=== PATIENT | male | born 1985 | race Caucasian/White ===

== ENCOUNTER 2019-11-08 11:34 | Observation (INO) | payer OTHER ==
[~2019-11-08] VITALS: Ht 185.4 cm; Wt 238.1 kg
[2019-11-08 11:42] VITALS: BP 187/101
[2019-11-08] MEDS ORDERED: CARVEDILOL25 MG PO ×2 (11:49→13:59)
[2019-11-08] MEDS ORDERED: TORSEMIDE20 MG PO ×2 (11:49→13:59)
[2019-11-08] MEDS ORDERED: HYDROCHLOROTHIA25 M2 PO (11:50)
[2019-11-08] MEDS ORDERED: SPIRONOLACTONE25 MG PO ×2 (11:50→13:59)
[2019-11-08] MEDS ORDERED: KLOR-CON 1010 MEQ PO ×2 (11:51→13:59)
[2019-11-08] MEDS ORDERED: SYMBICORT160 MCG/4. INH (11:52)
[2019-11-08] MEDS ORDERED: PROAIR HFA8.5 GM INH (11:52)
[2019-11-08 12:15] LABS: ABSOLUTE EOSINOPHILS 0.1 thou/uL (0.0-0.7); ABSOLUTE LYMPHOCYTES 1.2 thou/uL (0.8-5.3); ABSOLUTE MONOCYTES 0.3 thou/uL (0.0-1.2); BASOPHILS 0.5 %; EOSINOPHILS 1.4 %; HEMATOCRIT 40.9 % (42.0-52.0); HEMOGLOBIN 13.8 gm/dL (14.0-18.0); MCH 26.7 pg (26.0-34.0); MCHC 33.8 g/dL (28.0-37.0); MCV 78.8 fL (80.0-100.0); MONOCYTES 3.3 %; MPV 8.7 fl. (7.2-11.1); NUCLEATED RBCS 0 /100WBC; PLATELET COUNT* 198 thou/uL (150-400); POLYS 80.8 %; RBC 5.19 mil/uL (4.50-6.00); RDW-CV 18.5 % (10.5-14.5); WBC 8.6 thou/uL (4.0-11.0)
[2019-11-08 12:26] LABS: CALCIUM 8.7 mg/dL (8.5-10.1); POTASSIUM 3.9 mmol/L (3.5-5.1)
[2019-11-08 12:27] LABS: APTT 23.1 Seconds (25.0-31.3); PROTIME 10.5 Seconds (9.20-11.50)
[2019-11-08 12:40] LABS: ALBUMIN 3.4 g/dL (3.4-5.0); TOTAL BILIRUBIN 0.5 mg/dL (<0.1-1.0); TOTAL PROTEIN 7.7 g/dL (6.4-8.2)
[2019-11-08 13:53] VITALS: BP 172/102
[2019-11-08] MEDS ORDERED: BACTRIM DS TAB1 EACH PO (13:59)
[2019-11-08 14:11] VITALS: BP 172/102
--- NOTE | 2019-11-08 15:00 | NUR ---
DC ORDERS RECEIVED. DC INSTRUCTIONS, CARE NOTES, SCRIPTS AND F/U APPTS GIVEN TO PT. PT COMMUNICATES UNDERSTANDING OF DC TEACHING. IV REMOVED. PT DC'D TO OWN PERSONAL VEHICLE W/ PAPERWORK AND ALL BELONGINGS AT APPROX 1455.
[2019-11-09 05:37] LABS: GLYCOHEMOGLOBIN (HGB A1C) 6.5 % (4.8-5.6)
--- NOTE | 2019-11-10 09:58 | EKG ---
[place] [address] ELECTROCARDIOGRAM REPORT Name: CIARA VASQUEZ Room: [address]#: [id number] Admission: 11/08/19 Attend Phys: Mau Zheng, Discharge: 11/08/19 Date of : 81 Date of Service: 11/08/19 1147 Report #: [id number] THIS REPORT FOR: //name// [facility] ED Test Date: 2019-11-08 Test Time: 11:47:09 Pat Name: CIARA VASQUEZ Department: Room: [facility] Gender: M Physician Asst: JESSICA : 1985 Requested By: Ambrocio Ibrahim Order Number: [id number] MD: Chang Ortiz Measurements Intervals [place] Rate: 87 P: 35 OR: 189 QRS: -12 QRSD: 102 T: 64 QT: 376 QTc: 453 Interpretive Statements Sinus rhythm late transition No previous ECG available for comparison Electronically Signed On 11-10-2019 9:58:14 CDT by Chang Ortiz [email or web address] <ELECTRONICALLY SIGNED> By: Chang Ortiz MD, [facility] 11/10/19 0958 1147 1147 Chang Ortiz MD, [facility] /EPI
== END 2019-11-08 14:55 | disposition home or self-care (01) ==
LOC: M.ERS 11:34 → M.TBA-ER 12:46 → M.2W 14:32
PROVIDERS: Family Medicine; ADMIT Internal Medicine; ATTEND Internal Medicine
DX: M79.3 Panniculitis, unspecified (principal); R60.0 Localized edema; E66.01 Morbid (severe) obesity due to excess calories; I87.2 Venous insufficiency (chronic) (peripheral); I11.0 Hypertensive heart disease with heart failure; I50.9 Heart failure, unspecified